=== PATIENT | male | born 1940 | race Caucasian/White ===

== ENCOUNTER 2017-03-01 04:12 | Inpatient (IN) ==
[2017-03-01] MEDS ORDERED: BENADRYL IV ONE (04:16)
[2017-03-01 04:39] LABS: MANUAL DIFF NEEDED? NO
[2017-03-01 04:40] LABS: BASO% 0.3 % (0.0-0.8); EOS# 0.19 X1000 (0.0-0.7); EOS% 2.1 % (0.0-10.0); HEMATOCRIT 42.6 % (42.0-52.0); HEMOGLOBIN 14.3 g/dL (14.0-18.0); IMM GRAN# 0.06 X1000 (0.0-0.04); IMM GRAN% 0.7 % (0.0-0.5); LYMPH# 2.14 X1000 (1.2-3.4); LYMPH% 24.2 % (20.5-51.1); MCH 31.7 PG (27-31); MCHC 33.6 g/dL (33-37); MCV 94.5 FL (81-99); MONO% 10.2 % (1.7-9.3); MPV 9.4 FL (7.4-10.4); NEUT% 62.5 % (42.2-75.2); PLT 310 X1000 (130-400); RBC 4.51 XMIL (4.7-6.1)
[2017-03-01 04:57] LABS: AGAP 15; ALBUMIN 3.9 g/dL (3.5-5.0); ALKALINE PHOSPHATASE 88 U/L (32-122); BUN 21 mg/dL (8-22); CALCIUM 10.2 mg/dL (8.8-10.2); CHLORIDE 93 mmol/L (98-107); COSMO 285; GOT 9 U/L (10-34); GPT < 5 U/L (10-44); POTASSIUM 4.7 mmol/L (3.5-5.1); SODIUM 135 mmol/L (136-145); TCO2 27 mmol/L (25-35); TOTAL BILIRUBIN 0.23 mg/dL (0.20-1.00); TOTAL PROTEIN 8.2 g/dL (6.3-8.3)
[2017-03-01] MEDS ORDERED: EPINEPHRINE IM ONE (06:15)
[2017-03-01] MEDS ORDERED: SOLU-MEDROL IV ONE (06:15)
[2017-03-01] MEDS ORDERED: SODIUM CHLORIDE 0.9% INJ ONE (06:20)
[2017-03-01] MEDS ORDERED: PEPCID IV ONE (06:20)
--- NOTE | 2017-03-01 06:26 | PROVIDER DOCUMENTATION ---
HPI-General Adult - General Chief Complaint: Tongue Swelling Stated Complaint: ANGIO EDEMA Time Seen by Provider: 03/01/17 06:12 Source: patient Allergies/Adverse Reactions: Patient Allergies Allergy/AdvReac Type Severity Reaction Status Date / Time ciprofloxacin [From Cipro] Allergy RASH Verified 03/01/17 06:48 ciprofloxacin HCl * Allergy RASH Verified 03/01/17 06:48 [From Cipro] codeine Allergy SWELLING Verified 03/01/17 06:48 Home Medications: Home Medication List Medication Instructions Recorded Confirmed Last Taken Type Aspirin 325 mg PO HS 07/17/14 12/01/16 11/30/16 History Insulin Glargine [Lantus] 55 unit SUBQ QHS 07/17/14 12/01/16 11/30/16 History Metformin HCl 1,000 mg PO HS 07/17/14 12/01/16 11/30/16 History [place]-3S/Dha/Epa/Fish Oil/D3 [Fish 1 cap PO HS 07/17/14 12/01/16 11/30/16 History Oil + D3 Softgel] Tamsulosin [Flomax] 0.4 mg PO QHS 07/17/14 12/01/16 11/30/16 History Ciprofloxacin HCl [Cipro] 500 mg PO BID #20 tablet 12/01/16 Unknown Rx Nitrofurantoin Monohyd/M-Cryst 100 mg PO BID #20 capsule 12/01/16 Unknown Rx [Macrobid 100 mg Capsule] - History of Present Illness -Gen Adult Nature of Presenting Problems: awoke this am with tongue, L lip swelling. no trouble breathing, but has trouble swallowing. some nausea, no fever. He tells me has never happened before , although EMS report said he has had before Pain Radiation: reports: no radiation Quality of Pain: reports: none Onset/Duration: reports: this morning Context/Activities at Onset: reports: sleep Modifying Factors: improves with: nothing Similar Symptoms Previously?: No Recently seen or treated by another doctor?: No Review of Systems - Adult - REVIEW OF SYSTEMS - ADULT Constitutional: reports: no symptoms reported Eyes: reports: no symptoms reported Ears, Nose, Mouth & Throat: reports: see HPI Cardiovascular: reports: no symptoms reported Respiratory: reports: no symptoms reported Gastrointestinal: reports: no symptoms reported Genitourinary: reports: no symptoms reported Musculoskeletal: reports: no symptoms reported Integumentary: reports: no symptoms reported Neurological: reports: no symptoms reported Psychiatric: reports: no symptoms reported Endocrine: reports: no symptoms reported Hematologic/Lymphatic: reports: no symptoms reported Allergic/Immunologic: reports: no symptoms reported Past History - Adult - PAST MEDICAL HISTORY-ADULT Review of Records: reports: Medications Reviewed Major Childhood Illnesses: reports: denies history Cardiovascular: reports: HTN, hyperlipidemia Respiratory: reports: COPD Gastrointestinal: reports: denies history Obstetrical/Gynecological: reports: denies history Genitourinary: reports: denies history Musculoskeletal: reports: denies history Neurological: reports: denies history Endocrine/Immune: reports: denies history Other Conditions: reports: denies history - SOCIAL HISTORY Smoking: denies Physical Exam-General - PHYSICAL EXAM-ADULT Initial Vital Signs Reviewed: Yes - CONSTITUTIONAL General Appearance: appears well, alert, mild distress - EYES Eyes: PERRL/EOMI, pink conjunctivae - HEAD, EARS, NOSE, MOUTH & THROAT HENMT: normocephalic/atraumatic, moist mucous membranes, angioedema (tounge swollen, some swelling to L side of lips) - NECK Neck: full range of motion, supple - RESPIRATORY Respiratory: chest non-tender, lungs clear, normal breath sounds (no wheeze, no stridor) - CARDIOVASCULAR Cardiovascular: normal peripheral pulses, regular rate, rhythm, no gallop, no murmur - GASTROINTESTINAL (ABDOMEN) Abdominal Exam: non tender, soft - MUSCULOSKELETAL Back Exam: normal inspection, no CVA tenderness, no vertebral tenderness Extremity: normal range of motion, non-tender, normal gait, normal inspection - SKIN Integumentary: normal color, normal turgor, warm/dry Progress - PLAN OF CARE/RESULTS Progress/Plan/Lab Results: Vital Signs - 8 hr 03/01/17 04:18 Temperature 97.6 F Pulse Rate 98 H Respiratory Rate 15 Blood Pressure 134/65 O2 Sat by Pulse Oximetry 100 Laboratory Results - last 24 hr 03/01/17 03/01/17 03/01/17 04:05 04:05 04:05 WBC 8.86 RBC 4.51 L Hgb 14.3 Hct 42.6 MCV 94.5 MCH 31.7 H MCHC 33.6 RDW Std Deviation 14.4 Plt Count 310 MPV 9.4 Immature Gran % (Auto) 0.7 H Neut % (Auto) 62.5 Lymph % (Auto) 24.2 [place] % (Auto) 10.2 H Eos % (Auto) 2.1 Baso % (Auto) 0.3 Immature Gran # (Auto) 0.06 H Neut # (Auto) 5.54 Lymph # (Auto) 2.14 [place] # (Auto) 0.90 H Eos # (Auto) 0.19 Baso # (Auto) 0.03 Sodium 135 L Potassium 4.7 Chloride 93 L Carbon Dioxide 27 Anion Gap 15 BUN 21 Creatinine 1.0 Estimated GFR/1.73 m2 > 60 BUN/Creatinine Ratio 21 Glucose 305 H Calculated Osmolality 285 Calcium 10.2 Total Bilirubin 0.23 AST 9 L ALT < 5 L Alkaline Phosphatase 88 Total Protein 8.2 Albumin 3.9 Globulin 4.3 Albumin/Globulin Ratio 0.9 Blood Type A POSITIVE Antibody Screen NEGATIVE Orders Category Date Time Status CBC WITH ELECTRONIC DIFF [HEME] Stat Lab 03/01/17 04:05 Completed CMP [COMPREHENSIVE METABOLIC PANEL] [CHEM] Stat Lab 03/01/17 04:05 Completed FFP [FRESH FROZEN PLASMA] [BBK] Stat Lab 03/01/17 04:05 Results TYPE & SCREEN [BBK] Stat Lab 03/01/17 04:05 Results Diphenhydramine [Benadryl] Med 03/01/17 04:16 Discontinued 50 mg IV NOW ONE Epinephrine Med 03/01/17 06:15 Discontinued 0.2 mg IM NOW ONE Famotidine [Pepcid] Med 03/01/17 06:20 Once 40 mg IV NOW ONE Methylprednisolone Sod Succ [Solu-Medrol] Med 03/01/17 06:15 Discontinued 125 mg IV NOW ONE Sodium Chloride 0.9% Med 03/01/17 06:20 Once 5 - 10 ml INJ NOW ONE Result Diagrams: 03/01/17 04:05 03/01/17 04:05 Departure - Departure Date of Disposition Decision: 03/01/17 Time of Disposition Decision: 08:00 DIAGNOSIS: Angioedema Qualifiers: Encounter type: initial encounter Qualified Code(s): T78.3XXA - Angioneurotic edema, initial encounter Disposition: ADMITTED INPATIENT 09 Certified Medical Emergency: Emergent Condition: Good - Critical Care Note This patient required my direct & personal management of CC.: No
--- NOTE | 2017-03-01 09:42 | Diag Imaging Result Doc PS360 ---
EXAM: CHEST-PORTABLE HISTORY: dyspnea TECHNIQUE: PA and lateral chest COMMENT: There are sternotomy wires and anterior mediastinal surgical clips. Compared to 05/02/2011, there has been no appreciable change. IMPRESSION: No acute disease. Electronically signed by Riccardo Connelly 03/01/2017 9:40 AM
--- NOTE | 2017-03-01 09:44 | Diag Imaging Result Doc PS360 ---
EXAM: NECK AP AND/OR LAT SOFT TISSUE HISTORY: angioedema TECHNIQUE: AP and lateral portable soft tissue neck COMMENT: There is no apparent prevertebral soft tissue swelling. The epiglottis does not appear to be enlarged. The possibility of narrowing of the subglottic trachea cannot be excluded. IMPRESSION: Questionable narrowing of the subglottic trachea. Electronically signed by Riccardo Connelly 03/01/2017 9:42 AM
[2017-03-01] MEDS: PEPCID IV SCH ×2 (11:13→22:48)
[2017-03-01] MEDS: BENADRYL IV SCH ×2 (11:13→22:48)
[2017-03-01] MEDS: NS 1,000 ML IV SCH ×2 (11:14→22:49)
[2017-03-01] MEDS: LOVENOX SUBQ SCH (11:14)
[2017-03-01 11:18] LABS: HEMOGLOBIN A1C 8.3 % (4.8-6.0)
[2017-03-01] MEDS: HUMALOG SUBQ SCH ×3 (11:23→20:10)
--- NOTE | 2017-03-01 12:58 | HISTORY AND PHYSICAL ---
EARLY INTERVENTION SPECIALIST: Dr. Kan Gongora. CHIEF COMPLAINT: Tongue swelling. HISTORY OF PRESENT ILLNESS: Mr. Pride is a 76-year-old male with a history of coronary artery disease status post CABG and stenting, who presents with acute onset of upper airway edema. The patient was in his normal state of health last night when he went to bed. He woke up this morning at around 1 o'clock to go to the bathroom and noticed that his tongue felt "funny." He went to the bathroom and had some water, and when he laid down he felt that his tongue was swelling. It continued to swell and he came to the ER for evaluation. Patient denied any time any shortness of breath or wheezing. He has no chest pain, cough, fever or chills. In the ER, he had basic labs done which did not show anything acute. He was given Benadryl, Pepcid and steroids. In the ER he has maintained his oxygen saturation in the high 90s throughout admission. On exam, he is not in respiratory distress, but we are going to put him in the ICU for today for close observation. PAST MEDICAL HISTORY: 1. CAD. 2. Hypertension. 3. Hyperlipidemia. 4. Prostate cancer. SURGICAL HISTORY: Coronary bypass grafting and stenting. SOCIAL HISTORY: Patient is . He quit smoking multiple years ago. He drinks 2 glasses of wine at night. Denies illicit drug use. He lives alone. FAMILY HISTORY: Noncontributory. REVIEW OF SYSTEMS: Fourteen-point review of systems obtained and found to be negative with the exception of the HPI. ALLERGIES: Allergies to ciprofloxacin and codeine. MEDICATIONS: Currently being compiled. PHYSICAL EXAMINATION: VITAL SIGNS: Blood pressure is 137/81, heart rate 93, respiratory rate 21, O2 saturation 98% on room air, temperature is 97.6 degrees. GENERAL: This is a disheveled and chronically ill appearing, 76-year-old male, lying in hospital bed in no acute distress. NEUROLOGIC: He is awake and alert. He follows commands without focal deficits. HEENT: Head is atraumatic, normocephalic. His pupils are equal, round, reactive to light. His oral mucosa is moist. He has significant tongue swelling. NECK: Shows no JVD. No carotid bruits. CHEST: Clear to auscultation bilaterally. CV: Regular rate and rhythm. S1, S2 is noted. No murmurs. GI: Soft, nondistended, nontender. Bowel sounds positive. EXTREMITIES: No edema. Pulses are palpable, but diminished. DIAGNOSTIC DATA: WBC 8.86, hemoglobin 14.3, hematocrit 42.6, platelet count 310. Sodium 135, potassium 4.7, chloride 93, CO2 27, anion gap 15, BUN 21, creatinine 1, glucose 305. AST 9, ALT less than 5, protein 8.2. ASSESSMENT/PLAN: 1. RADHA-induced angioedema: The patient will be put in the ICU for close observation. We will continue with famotidine, Benadryl and Solu-Medrol. We will withhold RADHA or ARB. We are also going to check a chest x-ray and a soft tissue neck x-ray. 2. Diabetes mellitus: We are going to check hemoglobin A1c, add pattern sugars and sliding scale insulin. Hold his oral medications for now. 3. Coronary artery disease: Patient denies any chest pain. Will continue his home medications once he is able to swallow his medications. 4. Hypertension. We will treat with intravenous medications for now. We will stop his RADHA and switch antihypertensives on discharge. 5. Deep vein thrombosis prophylaxis with Lovenox. Further recommendations to follow. Dictated by ZONIA Patiño for Desean Stanford MD cc: ZONIA Patiño MD
[2017-03-01] MEDS: SOLU-MEDROL IV SCH (20:11)
[2017-03-01] MEDS: SODIUM CHLORIDE 0.9% INJ SCH (22:48)
[2017-03-02 05:48] LABS: HEMATOCRIT 41.5 % (42.0-52.0); HEMOGLOBIN 13.6 g/dL (14.0-18.0); MCH 32.2 PG (27-31); MCHC 32.8 g/dL (33-37); MCV 98.1 FL (81-99); MPV 9.4 FL (7.4-10.4); RBC 4.23 XMIL (4.7-6.1)
[2017-03-02 06:02] LABS: AGAP 19; BUN 29 mg/dL (8-22); CALCIUM 9.2 mg/dL (8.8-10.2); CHLORIDE 101 mmol/L (98-107); COSMO 293; SODIUM 141 mmol/L (136-145); TCO2 21 mmol/L (25-35)
[2017-03-02] MEDS: HUMALOG SUBQ SCH ×5 (06:07→21:12)
[2017-03-02] MEDS: SOLU-MEDROL IV SCH (08:05)
[2017-03-02] MEDS: BENADRYL IV SCH ×2 (10:07→21:07)
[2017-03-02] MEDS: SODIUM CHLORIDE 0.9% INJ SCH (10:09)
[2017-03-02] MEDS: PEPCID IV SCH ×2 (10:09→21:07)
[2017-03-02] MEDS: LOVENOX SUBQ SCH (10:09)
[2017-03-02] MEDS: NS 1,000 ML IV SCH (10:27)
--- NOTE | 2017-03-02 11:17 | PROGRESS NOTE ---
DATE: 03/02/2017 SUBJECTIVE: This patient states that he is feeling much better. He is not having problem breathing or swallowing. I will put this patient on a diet and I will continue to monitor this patient on the medical floor. OBJECTIVE: Vital Signs: Temperature 97.8 degrees, pulse 68, respiratory rate 14, blood pressure 134/78, oxygen saturation 100% on room air. HEENT: Head normocephalic. No trauma. PERRLA. Mouth: His tongue is a little bit edematous. Palate looks fine as well as soft tissue. No problem swallowing. Neck: Supple. No JVD. No masses. Central trachea. Chest: Clear to auscultation. No wheezing. No rales. Abdomen: Soft, nontender, nondistended. No hepatosplenomegaly. Extremities: No edema. No clubbing. No cyanosis. Neurological examination: The patient is alert and oriented x3. No focal neurological deficits. LABORATORY: WBC 10.8, hemoglobin 13.6, hematocrit 41.5, platelets 311. Sodium 141, potassium 5, chloride 101, bicarbonate 21, BUN 29, creatinine 0.8, glucose 210, calcium 9.2. ASSESSMENT AND PLAN: 1. RADHA inhibitor-induced angioedema. I already talked to this patient and I told him that he cannot take any kind of RADHA inhibitor again or ARB. The angioedema looks much better today. He is breathing fine. I will start this patient on a diet, and I will monitor this patient for one more day. Hopefully tomorrow we will discharge him. 2. Type 2 diabetes. This patient received multiple rounds of steroids and the blood sugar has been high. I stopped the steroids today, and I will continue with sliding scale insulin and pattern of blood sugar. 3. History of coronary artery disease. This patient denies any chest pain or shortness of breath. We will monitor. 4. Hypertension, stable. Continue with the same management. 5. Deep vein thrombosis prophylaxis with Lovenox. cc: Desean Stanford MD
[2017-03-03] MEDS: HUMALOG SUBQ SCH ×2 (06:23→11:57)
[2017-03-03 06:36] LABS: HEMATOCRIT 39.6 % (42.0-52.0); MCH 32.1 PG (27-31); MCHC 32.8 g/dL (33-37); MCV 97.8 FL (81-99); MPV 9.4 FL (7.4-10.4); RBC 4.05 XMIL (4.7-6.1)
[2017-03-03 07:07] LABS: AGAP 12; BUN 31 mg/dL (8-22); CALCIUM 9.3 mg/dL (8.8-10.2); CHLORIDE 102 mmol/L (98-107); COSMO 295; POTASSIUM 4.2 mmol/L (3.5-5.1); SODIUM 142 mmol/L (136-145); TCO2 28 mmol/L (25-35)
[2017-03-03 09:03] VITALS: BP 139/52
[2017-03-03] MEDS: SODIUM CHLORIDE 0.9% INJ SCH (09:55)
[2017-03-03] MEDS: BENADRYL IV SCH (09:55)
[2017-03-03] MEDS: PEPCID IV SCH (09:55)
[2017-03-03] MEDS: LOVENOX SUBQ SCH (09:55)
--- NOTE | 2017-03-04 12:31 | DISCHARGE SUMMARY ---
ADMISSION DATE: 03/01/2017 DISCHARGE DATE: 03/03/2017 CONSULTATIONS: None. PERTINENT PROCEDURES: 1. Chest x-ray showed no acute disease. 2. Soft tissue neck x-ray showed questionable narrowing of the subglottic trachea. DISCHARGE DIAGNOSES: 1. RADHA inhibitor induced angioedema. The patient's RADHA inhibitor has been discontinued. Improved. 2. Type 2 diabetes. Continue home medicines. 3. Coronary artery disease history. Stable. 4. Hypertension stable. Continue same management. HOSPITAL COURSE: Briefly, Mr. Pride is a 76-year-old male with a history of coronary artery disease status post CABG and stenting presented with acute onset of upper airway edema. The patient was in his normal state of health the night prior to his admission. He went to bed. He woke up around 1 in the morning, went to the bathroom and noticed that his tongue felt funny. He had some water and when he laid down he felt like his tongue was swelling. It continued to swell. He came to the ED for evaluation. He denies any shortness of breath or wheezing. No chest pain or cough, fever, chills. His laboratory data and diagnostics done in the ED did not show anything acute. He was given Benadryl, Pepcid and steroids. In the ED he maintained his oxygen saturation in the high 90s throughout admission. On exam he did not have any respiratory distress. He was monitored in the ICU for close observation overnight. His RADHA inhibitor was discontinued. He was initiated on a diet which he tolerated well. The patient has been educated that he can no longer take an RADHA or an ARB. He is appropriate for discharge home today. VITAL SIGNS: Temperature is 98 degrees, heart rate 90, respirations 18, blood pressure is 139/52, O2 is 100% on room air. DISCHARGE DIET: GI soft. DISCHARGE MEDICATIONS: 1. Aspirin 81 mg p.o. at bedtime. 2. Lipitor 20 mg p.o. at bedtime. 3. Welchol 625 mg p.o. b.i.d. 4. Farxiga 10 mg p.o. daily. 5. Neurontin 100 mg p.o. at bedtime. 6. Metformin 1000 mg p.o. b.i.d. 7. Fish oil plus D 3 soft gel 1 cap p.o. at bedtime. 8. Flomax 0.4 mg p.o. at bedtime. FOLLOWUP: Patient is being discharged home. He does use a cane at home at times. He states that a brother or sister will stay with him at the time of his discharge. He will follow up with the nurse practitioner that he sees at [facility] in [place] in 1 week. Again, he has been educated not to take his RADHA or any ARB, that he now has an allergy. The patient can return to the ED for any worsening of symptoms. Dictated by ZONIA Fermin for Desean Stanford MD cc: Desean Stanford MD
== END 2017-03-03 12:08 | disposition home or self-care (01) ==
LOC: ED 04:12 → ICU 08:30 → 3N 03-02 10:36
PROVIDERS: ATTEND Internal Medicine

== ENCOUNTER 2019-07-10 01:26 | Inpatient (IN) ==
--- NOTE | 2019-07-02 09:43 | EKG Report ---
Test Performed on : 07/02/2019 09:29:39 AM Test Reason : PAT Blood Pressure : / mmHG Vent. Rate : 084 BPM Atrial Rate : 084 BPM P-R Int : 182 ms QRS Dur : 094 ms QT Int : 370 ms P-R-T Axes : 084 101 023 degrees QTc Int : 437 ms Normal sinus rhythm. Rightward axis T wave abnormality, consider inferior ischemia Abnormal ECG When compared with ECG of 28-APR-2011 05:44, premature ventricular complexes. are no longer present Nonspecific T wave abnormality has replaced inverted T waves in Lateral leads Unconfirmed Result
[2019-07-02 12:00] LABS: URINE SOURCE CLEAN CATCH
[2019-07-02 12:07] LABS: BASO# 0.02 X1000 (0.0-0.2); BASO% 0.3 % (0.0-0.8); EOS# 0.13 X1000 (0.0-0.7); EOS% 1.9 % (0.0-10.0); HEMATOCRIT 45.5 % (42.0-52.0); HEMOGLOBIN 14.6 g/dL (14.0-18.0); LYMPH# 2.92 X1000 (1.2-3.4); MCH 31.7 PG (27-31); MCHC 32.1 g/dL (33-37); MCV 98.7 FL (81-99); MONO# 0.83 X1000 (0.11-0.59); MONO% 11.9 % (1.7-9.3); MPV 10.3 FL (7.4-10.4); NEUT# 3.06 X1000 (1.4-6.5); NEUT% 43.9 % (42.2-75.2); PLT 283 X1000 (130-400); RBC 4.61 XMIL (4.7-6.1); RDW 14.8 % (11.5-14.5); WBC 6.96 X1000 (4.8-10.8)
[2019-07-02 12:12] LABS: BILIRUBIN URINE NEGATIVE (NEGATIVE); BLOOD URINE NEGATIVE (NEGATIVE); COLOR YELLOW; GLUCOSE URINE 100 mg/dL (NEGATIVE); KETONE URINE TRACE mg/dL (NEGATIVE); LEUKOCYTES URINE NEGATIVE (NEGATIVE); NITRITE URINE NEGATIVE (NEGATIVE); PH URINE 5.5; PROTEIN URINE TRACE mg/dL (NEGATIVE); SP GRAVITY URINE 1.015; TURBIDITY URINE CLEAR (CLEAR); UROBILINOGEN URINE NORMAL (NORMAL)
[2019-07-02 12:13] LABS: UR EPITHELIAL CELLS <10 /HPF (<10); URINE BACTERIA NEGATIVE /HPF; URINE RBC <10 /HPF (<10); URINE WBC <10 /HPF (<10)
[2019-07-02 12:14] LABS: INR 0.96; PROTIME 12.8 Seconds (11.0-16.0)
[2019-07-02 12:15] LABS: HEMOGLOBIN A1C 6.9 % (4.8-6.0); PTT 29.1 Seconds (22.3-41.8)
[2019-07-02 12:35] LABS: AGAP 14; BUN 20 mg/dL (8-22); CALCIUM 10.1 mg/dL (8.8-10.2); CHLORIDE 97 mmol/L (98-107); COSMO 284; ESTIMATED GFR > 60; GLUCOSE 143 mg/dL (70-104); POTASSIUM 4.5 mmol/L (3.5-5.1); SODIUM 140 mmol/L (136-145); TCO2 29 mmol/L (25-35)
[2019-07-10] MEDS ORDERED: LR 1,000 ML ONE (08:50)
[2019-07-10] MEDS ORDERED: COLACE ONE (08:50)
[2019-07-10] MEDS ORDERED: CELEBREX ONE (08:50)
[2019-07-10] MEDS ORDERED: PEPCID ONE (08:50)
[2019-07-10] MEDS ORDERED: KEFZOL 1 GM/D5W 1 GM/50 ML IVPB ONE (08:50)
[2019-07-10] MEDS ORDERED: REGLAN ONE (08:50)
[2019-07-10] MEDS ORDERED: LYRICA ONE (08:50)
[2019-07-10] MEDS ORDERED: FENTANYL ONE (09:06)
[2019-07-10] MEDS ORDERED: DIPRIVAN 1% ONE (09:07)
[2019-07-10] MEDS ORDERED: LOPRESSOR ONE (09:09)
[2019-07-10] MEDS ORDERED: EXPAREL 1.3% ONE (09:37)
[2019-07-10] MEDS ORDERED: MARCAINE 0.25% PF ONE (09:37)
[2019-07-10] MEDS ORDERED: SODIUM CHLORIDE 0.9% ONE (09:37)
[2019-07-10] MEDS ORDERED: CYKLOKAPRON 1,000 MG/NS 1,000 MG/100 ML IVPB ONE (09:37)
[2019-07-10] MEDS ORDERED: DURAMORPH ONE (09:37)
[2019-07-10] MEDS ORDERED: TORADOL ONE (09:37)
[2019-07-10] MEDS ORDERED: ALBUMIN 25% ONE (09:59)
[2019-07-10] MEDS ORDERED: VERSED ONE (10:12)
[2019-07-10] MEDS ORDERED: APRESOLINE ONE (11:35)
[2019-07-10] MEDS ORDERED: NEO-SYNEPHRINE ONE (11:35)
[2019-07-10 12:30] LABS: URINE SOURCE CATH
[2019-07-10 12:34] LABS: BILIRUBIN URINE NEGATIVE (NEGATIVE); BLOOD URINE TRACE (NEGATIVE); COLOR YELLOW; GLUCOSE URINE 150 mg/dL (NEGATIVE); KETONE URINE NEGATIVE (NEGATIVE); LEUKOCYTES URINE NEGATIVE (NEGATIVE); NITRITE URINE NEGATIVE (NEGATIVE); PH URINE 5.5; PROTEIN URINE TRACE mg/dL (NEGATIVE); SP GRAVITY URINE 1.016; TURBIDITY URINE CLEAR (CLEAR); UR EPITHELIAL CELLS >10 /HPF (<10); URINE BACTERIA NEGATIVE /HPF; URINE RBC <10 /HPF (<10); URINE WBC <10 /HPF (<10); UROBILINOGEN URINE NORMAL (NORMAL)
[2019-07-10] MEDS ORDERED: NS 1,000 ML ONE (13:00)
[2019-07-10] MEDS ORDERED: OXY IR PO PRN ×2 (13:15)
[2019-07-10] MEDS ORDERED: MORPHINE IV PRN ×3 (13:15)
[2019-07-10] MEDS ORDERED: NS 1,000 ML IV SCH (13:15)
[2019-07-10] MEDS ORDERED: ZOFRAN ODT PO PRN (13:15)
[2019-07-10] MEDS ORDERED: ZOFRAN IV PRN (13:15)
[2019-07-10] MEDS ORDERED: FLU VACCINE IM ONE (16:26)
[2019-07-10] MEDS ORDERED: VOLTAREN 1% GEL TOP PRN (16:29)
[2019-07-10] MEDS ORDERED: LANTUS INSULIN SUBQ PRN (16:29)
[2019-07-10] MEDS ORDERED: CYKLOKAPRON 1,000 MG in NS 100 ML IV ONE (16:30)
[2019-07-10] MEDS: TYLENOL PO SCH ×2 (16:51→21:47)
[2019-07-10] MEDS: ULTRAM PO SCH ×2 (16:51→21:47)
[2019-07-10] MEDS: KEFZOL 1 GM/D5W 1 GM/50 ML IVPB IV SCH (18:27)
--- NOTE | 2019-07-10 19:25 | OPERATIVE NOTE ---
PROCEDURE DATE: 07/10/2019 PREOPERATIVE DIAGNOSIS: Degenerative joint disease, left hip. POSTOPERATIVE DIAGNOSIS: Degenerative joint disease, left hip. PROCEDURE PERFORMED: Left anterior hip replacement. SURGEON: Tiffany Hess MD. SUPERVISOR PLATE PASTING: ZONIA Jj. Mr. Hitchcock was necessary for proper retraction and manipulation during the case. ANESTHESIA: Spinal. COMPLICATION: None. PROCEDURE: A 78-year-old male presents for a left hip replacement. Risks, benefits, and no guarantees were discussed and he is willing to proceed. He was taken to the operating room and satisfactory anesthesia obtained. He was placed on the [place] table and left hip prepped and draped in usual sterile fashion. A time-out was taken to confirm operative site, procedure, and patient. The leg was prepped and draped in sterile fashion. An anterior approach to the left hip was undertaken with an incision starting 1 cm distal and lateral to the anterior superior iliac spine and carried distally over the tensor fascia sergio for 10 cm. Dissection was carried down through the skin and subcutaneous fat. The fascia of the tensor was split in line with the incision and blunt dissection along the inner membrane of the tensor undertaken down to the anterior hip capsule. Cobra retractors placed over the superior and inferior aspect of the femoral neck. The capsulotomy incision was made to expose the arthritic hip. At this point, a C-arm was used to establish an AP pelvis for determination of leg lengths. Roughly 2 cm of shortening from bone loss was noted on the left side. An osteotomy was made at the femoral neck and the femoral head removed. A small Cobra retractors placed carefully directly on the anterior acetabular bone to prevent injury to the anterior neurovascular structures. Sequential reaming of the acetabulum under fluoroscopic guidance was undertaken up to a 53 reamer. A TRA[employer] [place] DuoFix AVILA coated 54 outer diameter cup was then impacted into the acetabulum under fluoroscopic guidance in 45 degrees of abduction and 15 degrees of anteversion. This had secure press-fit fixation. An additional 25 length screw was placed in the cup for additional security. A 36 mm inner diameter 0 degree polyethylene bearing was then impacted into the cup. The cup bearing interface and cup bone interface was checked and noted to be stable. Traction was released off the leg and the hip extended and externally rotated to facilitate broaching of the proximal femur. Sequential broaching of the proximal femur with the DePuy Actis broach was undertaken up to a size 4 stem. Standard collar with a +5 or ischemia standard collar with a 1.5 neck length produced the best stability and roman catholic of near close to equal leg lengths. No anterior posterior instability was noted. The trial stem and head ball was removed. A DePuy standard collar size 4 Actis stem was then impacted in the proximal femur with secure axial and rotational stability. A 36 mm head ball with a 1.5 neck taper was then impacted onto this. The hip was reduced. The C-arm was used to make very her to produce pictures for alignment and positioning of the prosthesis. Stability was assessed by flexing the hip up and internally rotating it without posterior instability. Anterior instability was assessed by externally rotating the leg 75 degrees and extending the hip 50 degrees without any anterior instability. The wound was copiously irrigated with irrigant. A Hemovac drain was placed. The joint capsule was injected with Exparel for pain management. The fascia of the tensor was closed with a running V-Loc suture. The subcutaneous with 2-0 Vicryl and the skin with a 4-0 Monocryl and Steri-Strips. Sterile dressings completed the closure and the patient was recovered from anesthesia and transferred to the recovery room in stable condition. No intraoperative complications were noted. Instrument count and sponge count was correct at the time of closure. cc: Arben Hess MD
--- NOTE | 2019-07-10 21:40 | ORTHOPAEDICS PROGRESS NOTE ---
DATE: 07/10/2019 SUBJECTIVE: Mr. Pride is seen status post total hip replacement. OBJECTIVE: He is afebrile with stable vital signs. Bandage is clean and dry. He appears to be motor and sensory intact with good sciatic and femoral nerve function. ASSESSMENT/PLAN: We will plan on mobilizing him and consider transfer to rehab center later this week. Currently he appears to be stable. cc: Arben Hess MD
[2019-07-10] MEDS: PERIDEX MT SCH (21:46)
[2019-07-10] MEDS: FLOMAX PO SCH (21:46)
[2019-07-10] MEDS: CELEBREX PO SCH (21:46)
[2019-07-10] MEDS: LOPRESSOR PO SCH (21:46)
[2019-07-10] MEDS: CRESTOR PO SCH (21:47)
[2019-07-10] MEDS: COLACE PO SCH (21:47)
[2019-07-11] MEDS: LANTUS INSULIN SUBQ SCH ×2 (00:24→23:06)
[2019-07-11] MEDS: TYLENOL PO SCH ×4 (04:19→23:05)
[2019-07-11] MEDS: ULTRAM PO SCH ×4 (04:19→23:07)
[2019-07-11] MEDS: KEFZOL 1 GM/D5W 1 GM/50 ML IVPB IV SCH (04:19)
[2019-07-11 06:40] LABS: HEMATOCRIT 28.6 % (42.0-52.0); HEMOGLOBIN 9.4 g/dL (14.0-18.0)
[2019-07-11 07:17] LABS: AGAP 11; BUN 22 mg/dL (8-22); CALCIUM 8.5 mg/dL (8.8-10.2); CHLORIDE 102 mmol/L (98-107); COSMO 286; ESTIMATED GFR > 60; GLUCOSE 259 mg/dL (70-104); POTASSIUM 4.5 mmol/L (3.5-5.1); SODIUM 137 mmol/L (136-145); TCO2 24 mmol/L (25-35)
--- NOTE | 2019-07-11 08:25 | Diag Imaging Result Doc PS360 ---
CHEST-1 VIEW - 07/11/2019 INDICATION: rehab COMPARISON: 03/01/2017 FINDINGS: There is ar small pulmonary mass in the left lung apex. This measures 2.3 cm. There are no infiltrates. IMPRESSION: Pulmonary mass in the left upper lobe. Chest CT is recommended. Electronically signed by Duke Guzman 07/11/2019 8:23 AM
[2019-07-11] MEDS: CELEBREX PO SCH ×2 (09:35→23:05)
[2019-07-11] MEDS: ASPIRIN PO SCH (09:35)
[2019-07-11] MEDS: PERIDEX MT SCH ×2 (09:36→23:07)
[2019-07-11] MEDS: PEPCID PO SCH (09:36)
[2019-07-11] MEDS: COLACE PO SCH ×2 (09:36→23:07)
[2019-07-11] MEDS: LOPRESSOR PO SCH ×2 (09:37→23:06)
--- NOTE | 2019-07-11 11:20 | Diag Imaging Result Doc PS360 ---
CT THORAX W/CONTRAST - 07/11/2019 INDICATION: Pulmonary Mass COMPARISON: None FINDINGS: There is a lobular soft tissue density, noncalcified pulmonary mass at the posterior pleural surface of the left upper lobe. This measures about 2.2 x 1.9 cm. Although at the posterior pleural surface, this is also right behind the scapula and would be difficult to access percutaneously. No infiltrates. There are CABG changes. Heart size is top normal. No evidence of pulmonary embolism. There is extensive renal cortical scarring of the upper pole the left kidney. Otherwise upper abdominal images are unremarkable. Bones are intact. IMPRESSION: Suspicious pulmonary nodule in the posterior left upper lobe. This exam was performed using automated exposure control, adjustment of mA or kV according to patient size, and/or use of iterative reconstruction technique Electronically signed by Duke Guzman 07/11/2019 11:18 AM
[2019-07-11] MEDS: HUMALOG SUBQ SCH ×3 (11:24→23:06)
--- NOTE | 2019-07-11 14:53 | ORTHOPAEDICS PROGRESS NOTE ---
DATE: 07/11/2019 SUBJECTIVE: Mr. Pride is seen status post total hip replacement. He did have some confusion last night, as well as slightly increased blood sugars. We have asked the hospitalist to see him today for further evaluation and geriatric care. He will need inpatient rehab. We will get the medical planner working on that. Currently, he is afebrile with stable vital signs. Laboratories look relatively good. He did have a slight temperature of 100.2 degrees. We will continue to monitor that. He can be mobilized today. We will plan on discharge to rehab center when available and he is stable. cc: MD Bin Rios MD
--- NOTE | 2019-07-11 20:23 | CONSULTATION ---
DATE OF CONSULTATION: 07/11/2019 CHIEF COMPLAINT: Medical consultation. HISTORY OF PRESENTING ILLNESS: This is a 78-year-old male who presented to [facility] for a left anterior hip replacement for left hip degenerative joint disease per Orthopedics. We were asked to consult on this patient for medical management for his diabetes and to follow him throughout this hospitalization. His surgery was on 07/10/2019. He is doing well, sitting up in the bed, eating breakfast at this time. No complaints voiced. PAST MEDICAL HISTORY: Diabetes type 2, coronary artery disease, hypertension, hyperlipidemia and prostate cancer. PAST SURGICAL HISTORY: Coronary bypass grafting and stenting. FAMILY HISTORY: Reviewed and noncontributory. SOCIAL HISTORY: He is and currently lives alone. He is a former smoker but quit many years ago. He states he drinks 2 glasses of wine at night and denies any illicit drug use. ALLERGIES: Ciprofloxacin, codeine and lisinopril. HOME MEDICATIONS: We will hold his meloxicam 15 mg p.o. daily, tramadol 50 mg p.o. q.6 hours p.r.n. We will continue his vitamin B12, 1000 mcg p.o. as directed; Voltaren 1% gel topically p.r.n.; Basaglar 5 units subcutaneously p.r.n., 12 units subcutaneously at bedtime; Lopressor 25 mg p.o. b.i.d.; Crestor 40 mg p.o. at bedtime; Flomax 0.4 mg p.o. at bedtime. LABORATORY DATA: Showed a hemoglobin of 9.4, hematocrit 28.6. Sodium 137, potassium 4.5, chloride 102, CO2 is 24, BUN of 22, creatinine 1, glucose 259. Hemoglobin A1c on 07/02/2019 was 6.9. Urinalysis was negative. DIAGNOSTIC DATA: Chest x-ray today showed a pulmonary mass in the left upper lobe, and a chest CT is recommended. REVIEW OF SYSTEMS: He denied any fever, chills, blurred vision, dizziness, chest pain, coughing or shortness of breath. He denied any abdominal pain, constipation, diarrhea, burning or hurting with urination.Musculoskeletal: He has 5/5 strength to his upper extremities, 5/5 strength to his right lower extremity, and is status post his left hip replacement at this time. PHYSICAL EXAMINATION: Temperature 98.6 degrees, pulse 93, respirations 17, blood pressure 103/43, saturating 94% on room air.General: This is a 78-year-old male who is sitting up in the bed, eating breakfast. Answers questions appropriately. HEENT: Normocephalic, atraumatic. Normal ENT inspection. Oropharynx and nares are clear. Eyes: Pupils are equal, round and reactive to light and accommodation. Extraocular movements are intact. Neck: Normal inspection, normal range of motion. Lungs were clear to auscultation bilaterally with equal lung expansion and chest wall movement. Heart: Regular rate and rhythm. No murmurs, rubs or gallops. Abdomen soft, nontender, nondistended. Bowel sounds are present x4 quadrants. Musculoskeletal: Again, he has 5/5 strength to his bilateral upper extremities, 5/5 strength to his right lower extremity. Limited at this time on his left side due to his hip replacement. Neurological: The cranial nerves 2-12 appear grossly intact. ASSESSMENT: 1. Status post left hip replacement. 2. Pulmonary mass in the left upper lobe. 3. Diabetes type 2. 4. History of hypertension. 5. History of coronary artery disease. PLAN: He will continue his postoperative treatment per Orthopedics for his left hip repair, with Physical Therapy to see. We are going to do a CT of the thorax with contrast to evaluate the left upper lobe mass today. Place him on pattern blood sugars with sliding scale insulin. Continue his home medications as previously identified. Normal saline at 75 mL/h. Continue his pain medication regimen per Orthopedics. He has SCDs for DVT prophylaxis. We will continue to follow throughout the remainder of his stay. Thank you for the opportunity to see this patient throughout the remainder of his hospitalization. Dictated by ZONIA Rushing for Bin Cook MD cc: ZONIA Rushing MD I agree with most components of history, physical, assessment and plan. A separate addendum has been dictated. CORBIN
[2019-07-11] MEDS: CRESTOR PO SCH (23:05)
[2019-07-11] MEDS: FLOMAX PO SCH (23:06)
[2019-07-12] MEDS: TYLENOL PO SCH ×3 (03:22→15:09)
[2019-07-12] MEDS: ULTRAM PO SCH ×3 (03:23→15:09)
--- NOTE | 2019-07-12 05:11 | CONSULTATION ---
DATE OF CONSULTATION: 07/11/2019 ADDENDUM: I agree with most components of history and recommendations. In brief, Mr. Pride is a 78-year-old man with past medical history of coronary artery disease requiring stent and CABG in 1989, former smoking of about 30 pack year with cigarettes and pipe which he quit about in 1989, right eye blindness, left eye partial vision loss, hypertension, hyperlipidemia, and prostate cancer status post radiation who was admitted for elective left hip arthroplasty. Medicine Team has been consulted for further management. Preoperative chest x-ray performed had detected a mass in the left upper lobe following which CT scan was obtained. SUBJECTIVE: He denies chest pain, shortness of breath, cough, nausea, or vomiting. He was only complaining of pain at the left hip joint. He is feeling a little drowsy after pain medications. VITALS: Temperature 98.4 degrees, pulse 99, respirations 16, and blood pressure 104/42. He is saturating 96% on room air. PHYSICAL EXAMINATION: General: He does not appear in acute distress. HEENT: Oral cavity is moist. Lungs: Air entry bilaterally equal. No wheeze, rhonchi, crackles. Cardiovascular: S1, S2 normal. No murmur, rub or gallop. Abdomen: Soft and nontender. No lower extremity edema. He is able to walk using his walker in the hallway with physical therapy. LABORATORY: Suggestive of drop in hemoglobin from 14.6 to 9.4. His electrolytes are essentially normal except hyperglycemia. No positive microbiological data. Chest CT is suggestive of suspicious pulmonary nodule in the posterior left upper lobe of about 2.2 x 1.9 cm. ASSESSMENT AND PLAN: 1. Left anterior hip replacement due to degenerative joint disease. Today is postoperative day 1. Continue pain management and DVT prophylaxis as per orthopedic team recommendation. 2. Left upper lobe lung mass suspicious. The patient has history of lung cancer in older as well as younger brother. He himself has history of prostate cancer requiring radiation in 1989; uncle and aunt having history of cancers as well. The mass is suspicious. He is a former smoker of about 30 years of pipe and occasionally cigarette smoking which he quit in 1989. I will consult Oncology as he may need a biopsy of his lung in the future. Currently, he is only on aspirin for DVT prophylaxis for the hip replacement. 3. History of coronary artery disease status post CABG. 4. History of essential hypertension and hyperlipidemia. 5. I will continue his home rosuvastatin. 6. History of insulin-dependent diabetes mellitus. Continue current dose of glargine. DISPOSITION: Monitor patient inside the hospital as I monitor him for recovery. Plan of care discussed with him. His questions have been answered. cc: Bin Cook MD
[2019-07-12 06:57] LABS: HEMOGLOBIN 8.8 g/dL (14.0-18.0)
[2019-07-12] MEDS: HUMALOG SUBQ SCH ×3 (07:03→15:58)
[2019-07-12] MEDS: ASPIRIN PO SCH (08:54)
[2019-07-12] MEDS: PEPCID PO SCH (08:54)
[2019-07-12] MEDS: CELEBREX PO SCH ×2 (08:55→20:28)
[2019-07-12] MEDS: COLACE PO SCH ×2 (08:56→20:29)
[2019-07-12] MEDS: PERIDEX MT SCH ×3 (08:56→20:31)
[2019-07-12] MEDS: LOPRESSOR PO SCH ×2 (08:56→20:28)
--- NOTE | 2019-07-12 13:59 | HEMO/ONC CONSULTATION ---
DATE: 07/12/2019 REASON FOR CONSULTATION: Left upper lobe mass. HISTORY OF PRESENT ILLNESS: This is a 78-year-old male who presented to the [facility] for left anterior hip replacement for left hip degenerative joint disease per orthopedics. The patient underwent surgery on 07/10. Orthopedics noticed that he was having some overnight confusion and increase in blood sugars. They requested hospitalist to evaluate and consider inpatient rehab care. Upon their evaluation, a chest X-ray revealed a small pulmonary mass in the left lung apex that measured 2.3 cm. Furthermore, a chest CT showed a lobular soft tissue density, noncalcified pulmonary mass suspicious for pulmonary nodule in the left posterior left upper lobe. PAST MEDICAL HISTORY: Type 2 diabetes, coronary artery disease, hypertension, hyperlipidemia, and prostate cancer. PAST SURGICAL HISTORY: CABG, stenting, and left hip replacement. SOCIAL HISTORY: He is a former smoker. He smoked 1 pack a day for 20 years. He quit in 1988. He drinks 2 glasses of wine a night. Denies any illicit drug use. ALLERGIES: Ciprofloxacin, codeine, and lisinopril. HOME MEDICATIONS: Meloxicam, tramadol, vitamin B12, Voltaren, Basaglar, Lopressor, Crestor, Flomax. REVIEW OF SYSTEMS: Includes left hip soreness and pain. All other pertinent positives are noted in the HPI, otherwise negative. LABORATORY: Hemoglobin 8.8, hematocrit 27. RADIOLOGY: Chest x-ray and CT are discussed in HISTORY OF PRESENT ILLNESS:. VITAL SIGNS: Temperature 98 degrees, pulse rate 83, respiratory rate 17, blood pressure 136/52, O2 saturation 97% on room air. She is in 4/10 left hip pain. PHYSICAL EXAMINATION: General: This is an elderly gentleman that does not appear in any distress. HEENT: Sclerae is anicteric. Oral mucosa is normal. PERRLA. Cardiovascular: Normal S1, S2. No murmurs, rubs, or gallops. Respiratory: Lungs are clear to auscultation. Normal respiratory effort. Abdomen: Soft, non tender, nondistended. Neurological: Awake and alert. No deficits noted. ASSESSMENT AND PLAN: 1. Status post left hip replacement. The patient will continue to recover per orthopedics. After he goes to rehab to recovers from his left hip surgery, we will see him in the clinic for further management of lung mass. 2. Pulmonary mass in the left upper lobe. At this time we cannot add much as he is status post left hip replacement. We will await recovery and rehab. We will follow up with him in the clinic for further evaluation and management. Plan for PET scan and biopsy outpatient. 3. Anemia: We will add iron profile to the patient's profile today. Optimize his iron, B12 and folate as necessary. We will follow up and continue to monitor as an outpatient. 4. Deep venous thrombosis prophylaxis. He has sequential compression devices for deep venous thrombosis prophylaxis. Dictated by ZONIA De La O for Allen Griggs MD cc: MD Bin Harley MD MTDD
[2019-07-12 14:41] LABS: IRON SATURATION 8 %; TIBC 177 ug/dL; TOTAL IRON 14 ug/dL (53-167); UNBOUND IRON 163 ug/dL (112-346)
[2019-07-12 14:46] LABS: FERRITIN 490 ng/mL (30-400)
[2019-07-12] MEDS ORDERED: TORADOL IV PRN (18:00)
[2019-07-12] MEDS: HALDOL IM PRN (20:04)
[2019-07-12] MEDS: FLOMAX PO SCH (20:28)
[2019-07-12] MEDS: TYLENOL PO PRN (20:29)
[2019-07-12] MEDS: CRESTOR PO SCH (20:29)
[2019-07-12] MEDS ORDERED: HALDOL IV ONE (20:45)
--- NOTE | 2019-07-12 21:08 | ORTHOPAEDICS PROGRESS NOTE ---
DATE: 07/12/2019 SUBJECTIVE DATA: Mr. Pride is seen on postoperative day 2, of his left total hip arthroplasty. He states his pain is a 3/10 at this time. He reports he has been up walking around in the jimenez without much difficulty. The nursing staff called earlier today and reported that Mr. Pride has been somewhat confused, and they had used some restraints earlier in the day. OBJECTIVE DATA: There is good sensation to the left lower extremity. The bandage has been removed from the left hip. He will need another bandage. There is no active bleeding. There are good pedal pulses. There is good range of motion about the knee and hip. There is negative Homans sign. The patient can flex his quadriceps muscles without difficulty. There is good capillary refill in the toes. ASSESSMENT: 1. Confusion. 2. Degenerative joint disease in the left hip with left total hip arthroplasty. PLAN: We will plan on monitoring Mr. Pride while he is in the hospital still. He is to likely be discharged tomorrow to rehab. He is still somewhat confused at this time. We will keep an eye on him since he is close to the nursing desk and make sure he does not try to wander off. We will check back on him in the morning and see if he is ready for discharge. Dictated by ZONIA Jj for Arben Hess MD cc: ZONIA Jj MD Siddharth Patel, MD
--- NOTE | 2019-07-12 21:46 | PROGRESS NOTE ---
DATE: 07/12/2019 INTERVAL HISTORY: Mr. Pride was confused and got agitated during daytime and had pulled out his IV lines. He was only receiving oral tramadol most of the time. SUBJECTIVE: At the time of my evaluation, he appears to be calm. He is answering most questions appropriately. OBJECTIVE: Vitals: Temperature of 98.1 degrees, pulse 85, respiratory rate 16, blood pressure 137/66. He is saturating 99% on room air. HEENT: He does have blindness complete on the right and partial on the left. Oral cavity is moist. Respiratory: Air entry bilaterally equal with no wheeze, rhonchi or crackles. Cardiovascular: S1, S2 normal. No murmur or gallop. Abdomen Soft, nontender. Extremities: No lower extremity edema. Neurologic: He is alert and currently oriented x3. He states that he was upset with his friend and sister and that is why he was agitated, but now appears alert. LABORATORY DATA: Suggestive of drop in hemoglobin, currently in acceptable range though. Blood glucose of 194. Iron panel suggestive of ferritin of 490, a saturation of 8. MICROBIOLOGY: No data. IMAGING: No new data. ASSESSMENT AND PLAN: 1. Left anterior hip replacement due to degenerative joint disease. Today is postoperative day 2. Continue pain management with acetaminophen and deep venous thrombosis DVT prophylaxis according to orthopedic recommendations with aspirin. If his hemoglobin is stable tomorrow, my plan will be to discharge him on newer oral anticoagulation. 2. Agitation likely related to opioid-induced and hospital-acquired delirium. Continue to redirect, reorient and reassure. 3. Left upper lobe lung mass suspicious of cancer with prior smoking history and positive family history for lung cancer. Oncology has been consulted. He would need outpatient followup. 4. History of coronary artery disease status post CABG and stent in 1991. 5. History of essential hypertension, hyperlipidemia for which I will continue his home medication. I will continue current dose of glargine for his history of insulin-dependent diabetes mellitus. DISPOSITION: Once the rehab bed is available, planning discharge tomorrow. cc: Bin Cook MD
[2019-07-13] MEDS: LANTUS INSULIN SUBQ SCH (04:30)
[2019-07-13] MEDS: PRILOSEC PO SCH ×2 (04:31→06:55)
[2019-07-13] MEDS: HUMALOG SUBQ SCH ×4 (04:31→17:29)
[2019-07-13 07:10] LABS: BASO# 0.02 X1000 (0.0-0.2); BASO% 0.1 % (0.0-0.8); EOS# 0.47 X1000 (0.0-0.7); EOS% 3.1 % (0.0-10.0); HEMATOCRIT 29.5 % (42.0-52.0); HEMOGLOBIN 9.7 g/dL (14.0-18.0); IMM GRAN# 0.18 X1000 (0.0-0.04); IMM GRAN% 1.2 % (0.0-0.5); LYMPH# 1.66 X1000 (1.2-3.4); MCH 31.8 PG (27-31); MCHC 32.9 g/dL (33-37); MCV 96.7 FL (81-99); MONO# 1.23 X1000 (0.11-0.59); MONO% 8.2 % (1.7-9.3); MPV 11.2 FL (7.4-10.4); NEUT# 11.53 X1000 (1.4-6.5); NEUT% 76.4 % (42.2-75.2); PLT 245 X1000 (130-400); RBC 3.05 XMIL (4.7-6.1); RDW 13.4 % (11.5-14.5); WBC 15.09 X1000 (4.8-10.8)
[2019-07-13 07:22] LABS: AGAP 17; BUN 19 mg/dL (8-22); CALCIUM 8.7 mg/dL (8.8-10.2); CHLORIDE 96 mmol/L (98-107); COSMO 276; CREATININE 0.9 mg/dL (0.7-1.2); ESTIMATED GFR > 60; GLUCOSE 193 mg/dL (70-104); POTASSIUM 3.6 mmol/L (3.5-5.1); SODIUM 134 mmol/L (136-145); TCO2 21 mmol/L (25-35)
[2019-07-13] MEDS: HALDOL IM PRN ×2 (08:16→14:11)
[2019-07-13] MEDS: COLACE PO SCH (08:16)
[2019-07-13] MEDS: LOPRESSOR PO SCH (08:17)
[2019-07-13] MEDS: ASPIRIN PO SCH (08:17)
[2019-07-13] MEDS: PERIDEX MT SCH (08:17)
[2019-07-13] MEDS: CELEBREX PO SCH (08:17)
--- NOTE | 2019-07-13 11:20 | Diag Imaging Result Doc PS360 ---
EXAM: CT HEAD W/O CONTRAST INDICATION: encephalopathy TECHNIQUE: This exam was performed using automated exposure control, adjustment of mA or kV according to patient size, and/or use of iterative reconstruction technique. COMPARISON: 11/27/2011 FINDINGS: There is patchy low attenuation in the periventricular and subcortical white matter suggesting moderate microangiopathy. Is very similar to the previous study but perhaps marginally worse. There is no definite acute infarct given the limited sensitivity of CT versus MRI. There is no discrete intracranial mass, mass effect, or intracranial hemorrhage. The surrounding soft tissues and bony structures are essentially unremarkable. IMPRESSION: Chronic appearing white matter changes that are probably marginally worse when compared to the previous study from 2011. No definite acute pathology by CT. Electronically signed by Arben Fountain 07/13/2019 11:18 AM
[2019-07-13 11:58] LABS: URINE SOURCE CLEAN CATCH
[2019-07-13 12:00] LABS: BILIRUBIN URINE NEGATIVE (NEGATIVE); BLOOD URINE MODERATE (NEGATIVE); COLOR YELLOW; GLUCOSE URINE 1000 mg/dL (NEGATIVE); KETONE URINE 40 mg/dL (NEGATIVE); LEUKOCYTES URINE NEGATIVE (NEGATIVE); NITRITE URINE NEGATIVE (NEGATIVE); PROTEIN URINE 100 mg/dL (NEGATIVE); SP GRAVITY URINE 1.027; TURBIDITY URINE CLEAR (CLEAR); UROBILINOGEN URINE NORMAL (NORMAL)
[2019-07-13 12:01] LABS: UR EPITHELIAL CELLS <10 /HPF (<10); URINE BACTERIA NEGATIVE /HPF; URINE RBC <10 /HPF (<10)
--- NOTE | 2019-07-13 12:05 | Diag Imaging Result Doc PS360 ---
EXAM: CHEST-2 VIEWS HISTORY: Rule out postop pneumonia. TECHNIQUE: Two views COMPARISON: 07/11/2019 FINDINGS: The lungs are well expanded. The sternal wires and surgical clips. No cardiomegaly. No pleural effusions. Left apical nodule is unchanged. No pneumothoraces. No consolidation although there is atelectasis or a tiny infiltrate in the left base. Mild vascular distention. IMPRESSION: Atelectasis or tiny infiltrate in the left base. Electronically signed by Gasper Redding 07/13/2019 12:02 PM
--- NOTE | 2019-07-13 14:15 | PROGRESS NOTE ---
DATE: 07/13/2019 SUBJECTIVE: Overnight, the sitter had to be kept with him since he was very agitated and pulled out his IV lines. In the morning time, he appears very confused, though he is arousable. He can tell me his name, but he is not really oriented with the situation. OBJECTIVE: Vital Signs: Temperature 98 degrees, pulse 104, respiratory rate 18, blood pressure 140/79, and saturating 94% on room air. General: He is not in any acute distress. HEENT: Oral cavity is moist. Lungs: Air entry bilaterally equal. No wheeze, rhonchi, or crackles. Cardiovascular: S1, S2 normal. No murmur, rub, or gallop. Does not appear tachycardic. Abdomen: Soft and nontender. Extremity: No lower extremity edema. He has a left thigh lateral incision. He is able to wiggle his toes and in fact, lift both of his legs and arms above ground level. Neurologic: He is alert. He is oriented to himself. He was not able to recognize me by my name. LABORATORY DATA: He does have a leukocytosis with immature granulocytes of 1.2%, normal kidney function, slightly ranged low sodium and chloride, and acceptable blood glucose level. No positive microbiological data. IMAGING: Head CT, chest x-ray, and urinalysis have been ordered. ASSESSMENT AND PLAN: 1. Acute encephalopathy and agitation. Differential includes opioid-induced and hospital- acquired delirium. I will rule out stroke and infection by head CT, chest x-ray, and urinalysis. Continue to avoid opioid medication. We will redirect, reorient, and reassure. 2. Left anterior hip replacement due to degenerative joint disease. Today is postoperative day 3. Continue pain management with acetaminophen and DVT prophylaxis with aspirin. His hemoglobin is stable. 3. History of left upper lobe lung mass, suspicious of cancer, with prior smoking history and positive family history for lung cancer. Oncology has been consulted. He will need outpatient followup. 4. History of coronary artery disease, status post coronary artery bypass grafting and stenting in 1991. 5. Essential hypertension and hyperlipidemia. Continue home medications for these as tolerated. I will continue current dose of glargine for history of insulin-dependent diabetes mellitus. 6. Disposition pending stabilization of his medical conditions accordingly and to rehab in the near future. Plan of care discussed with the patient. I, in fact, called the patient's brother, updating him about the plan of care and answered all of his questions. cc: Bin Cook MD
--- NOTE | 2019-07-13 14:31 | ORTHOPAEDICS PROGRESS NOTE ---
DATE: 07/13/2019 Mr. Pride is seen status post hip replacement. He remains confused. He is not even alert to name, place, or circumstance. Incisions clean and dry. There is minimal swelling over the lower extremity. I do not see any active bleeding, redness, warmth or signs of infection. He does have an elevated white blood cell count today which is unusual. His temperature is relatively afebrile. He did have a mild temperature roughly 24 hours ago to 100.2, but it has returned to 98 since then. He remains confused. We will plan on monitoring him in the hospital per the hospitalist service. When he is medically stabilized, we will consider discharge to rehab center. cc: MD Bin Rios MD
[2019-07-13] MEDS ORDERED: ATIVAN IV PRN (16:00)
[2019-07-13] MEDS ORDERED: ATIVAN IM PRN (16:08)
[2019-07-13] MEDS: LIBRIUM PO SCH (16:21)
[2019-07-13] MEDS ORDERED: SEROQUEL PO SCH (21:00)
[2019-07-14] MEDS: PRILOSEC PO SCH ×3 (01:25→23:21)
[2019-07-14] MEDS: CELEBREX PO SCH (01:25)
[2019-07-14] MEDS: LIBRIUM PO SCH ×5 (01:26→23:22)
[2019-07-14] MEDS: PERIDEX MT SCH ×3 (01:26→23:21)
[2019-07-14] MEDS: LOPRESSOR PO SCH ×3 (01:26→23:21)
[2019-07-14] MEDS: LANTUS INSULIN SUBQ SCH ×2 (01:26→23:24)
[2019-07-14] MEDS: FLOMAX PO SCH ×2 (01:27→23:21)
[2019-07-14] MEDS: CRESTOR PO SCH ×2 (01:27→23:21)
[2019-07-14] MEDS: HUMALOG SUBQ SCH ×5 (01:27→23:08)
[2019-07-14] MEDS: COLACE PO SCH ×3 (01:27→23:21)
[2019-07-14 06:52] LABS: BASO# 0.01 X1000 (0.0-0.2); BASO% 0.1 % (0.0-0.8); EOS# 0.15 X1000 (0.0-0.7); EOS% 1.2 % (0.0-10.0); HEMATOCRIT 27.1 % (42.0-52.0); HEMOGLOBIN 9.1 g/dL (14.0-18.0); LYMPH# 2.04 X1000 (1.2-3.4); LYMPH% 16.5 % (20.5-51.1); MCHC 33.6 g/dL (33-37); MCV 98.2 FL (81-99); MONO# 1.42 X1000 (0.11-0.59); MONO% 11.5 % (1.7-9.3); MPV 10.1 FL (7.4-10.4); NEUT# 8.71 X1000 (1.4-6.5); NEUT% 70.7 % (42.2-75.2); PLT 326 X1000 (130-400); RBC 2.76 XMIL (4.7-6.1); WBC 12.33 X1000 (4.8-10.8)
--- NOTE | 2019-07-14 15:47 | PROGRESS NOTE ---
DATE: 07/14/2019 INTERVAL HISTORY: No acute events overnight. He was quiet the rest of the night. In the morning time, he was asleep. He has not eaten his lunch. I woke him up and he appeared confusion. He is not able to provide historical data meaningfully. Yesterday, I had discussion with his brother that he drinks almost 1 glass of wine at nighttime but he is not sure if patient had history of alcohol withdrawal. VITALS: Temperature 97.8, pulse 77, respiratory rate 20, blood pressure 148/90, saturating 100% on 2 L nasal cannula. Input and output: He has not had any bowel movement since yesterday. LABORATORY: WBC of 12,000, hemoglobin 9.1, platelet 326. No BMP today. His urinalysis had 10-12 WBCs and urine culture has not shown any growth. PHYSICAL EXAMINATION: His air entry bilaterally equal. No wheeze, rhonchi, or crackles. Cardiovascular: S1, S2 normal. No murmur, or gallop. Abdomen: Soft, nontender. Extremities: No lower extremity edema. He is able to sit up from lying down position without any trouble. He has baseline blindness. Labs as mentioned above. IMAGING: Yesterday, head CT did not have any acute changes. He did have chronic-appearing white matter changes, which were worse. ASSESSMENT AND PLAN: 1. Acute encephalopathy. Differential includes hospital-acquired delirium, alcohol withdrawal syndrome, delirium tremens on top of baseline cognitive dysfunction. No definite evidence of infection. Head CT was unremarkable. Continue to avoid opioid. Redirect, reorient, reassure. Continue him on as needed lorazepam as well as chlordiazepoxide. 2. Left anterior hip replacement due to degenerative joint disease. Continue pain management with acetaminophen and start Xarelto for DVT prophylaxis. 3. History of left upper lobe lung mass suspicious of cancer with past smoking history and positive family history of lung cancer. Oncology has been consulted. He will need outpatient followup. 4. History of coronary artery disease status post coronary artery bypass grafting and stenting in 1991 currently appears stable. 5. Essential hypertension and hyperlipidemia. Continue metoprolol and continue glargine for insulin-dependent diabetes mellitus. 6. Disposition. Continue to monitor patient inside the hospital. Plan of care discussed with team. His questions have been answered. cc: Bin Cook MD [facility]
--- NOTE | 2019-07-14 18:57 | ORTHOPAEDICS PROGRESS NOTE ---
DATE: 07/14/2019 SUBJECTIVE: Mr. Pride is seen status post hip replacement. His delirium is improved. He is oriented to person and place today. He is unable recall specifically why he came in the hospital. His incision is clean and dry. We will continue to mobilize him. It is encouraging to see that he is improving. OBJECTIVE: He is afebrile with stable vital signs. ASSESSMENT/PLAN: The hospitalist is continuing to follow his delirium and medical illness. I will consider discharge to a rehab facility once he is assuredly medically stable. cc: MD Bin Rios MD
[2019-07-14] MEDS: TYLENOL PO PRN (23:21)
[2019-07-15] MEDS: LIBRIUM PO SCH ×4 (04:16→21:32)
[2019-07-15] MEDS: XARELTO PO SCH (06:27)
[2019-07-15] MEDS: PRILOSEC PO SCH ×2 (06:27→21:32)
[2019-07-15] MEDS: HUMALOG SUBQ SCH ×4 (07:43→21:32)
[2019-07-15] MEDS: COLACE PO SCH ×2 (09:15→21:32)
[2019-07-15] MEDS: LOPRESSOR PO SCH ×2 (09:15→21:32)
[2019-07-15] MEDS: PERIDEX MT SCH ×2 (09:15→21:32)
[2019-07-15] MEDS: TYLENOL PO PRN ×2 (12:44→21:32)
--- NOTE | 2019-07-15 12:54 | ORTHOPAEDICS PROGRESS NOTE ---
DATE: 07/15/2019 Mr. Pride is seen today. He is much more alert. He is oriented x2, really x3, to date, place, and name. Incision is clean and dry. Orthopedically stable. His dementia appears to be resolving. Will plan on discharge tomorrow to inpatient rehab facility. I will follow him tomorrow for discharge planning. cc: MD Bin Rios MD
--- NOTE | 2019-07-15 14:42 | EKG Report ---
Test Performed on : 07/14/2019 06:37:32 AM Test Reason : Follow up QTc Blood Pressure : / mmHG Vent. Rate : 119 BPM Atrial Rate : 119 BPM P-R Int : 160 ms QRS Dur : 104 ms QT Int : 326 ms P-R-T Axes : 070 090 023 degrees QTc Int : 458 ms Sinus tachycardia. Rightward axis Nonspecific ST and T wave abnormality Abnormal ECG When compared with ECG of 02-JUL-2019 09:29, No significant change was found Confirmed by Orlin CARRERO, P.J.M ([id number]) on 07/16/2019 6:30:16 PM
--- NOTE | 2019-07-15 14:54 | PROGRESS NOTE ---
DATE: 07/15/2019 INTERVAL HISTORY: No acute events overnight. He has been rather calm. He has not required any haloperidol or Ativan. He has been taking his Librium. SUBJECTIVE: I was able to wake him up. He denies any complaints. He is alert and oriented. OBJECTIVE: Current Vital Signs: Temperature 98.5 degrees, pulse 85, respiratory rate 20, blood pressure 127/43, saturating 97% on room air. General: Not in acute distress. HEENT: Oral cavity is moist. Lungs: Air entry bilaterally equal. No wheeze, rhonchi, crackles. Heart: S1, S2 normal. No murmur or gallop. Abdomen: Soft, nontender. Extremities: No lower extremity edema. Left lateral thigh incision appears to be healing well, without any undue erythema or discharge. Neurologic: He has blindness affecting both eyes, with only partial vision. LABORATORY DATA: No CBC today. BMP is suggestive of slight hyperglycemia. MICROBIOLOGY: Urine culture has not shown any growth. IMAGING: No new imaging. ASSESSMENT AND PLAN: 1. Acute encephalopathy. Differential includes hospital-acquired delirium, alcohol withdrawal syndrome since he drinks 2 to 3 wine glasses a day, on top of baseline cognitive dysfunction. Head CT was unremarkable. Infectious etiology is unremarkable. Now improving. I will slowly taper Librium down. 2. 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 Continue pain management with acetaminophen and Xarelto for deep venous thrombosis prophylaxis. 3. History of left upper lobe lung mass, suspicious of cancer with smoking and positive history of lung cancer. Oncology is planning outpatient biopsy. 4. History of coronary artery disease, status post coronary artery bypass graft, stenting in 1991. Currently appears stable. 5. Essential hyperlipidemia. 6. I will continue home metoprolol and glargine for insulin-dependent diabetes mellitus. 7. Disposition. Planning discharge to rehab tomorrow. Plan of care discussed with him. His questions have been answered. cc: Bin Cook MD
[2019-07-15] MEDS: CRESTOR PO SCH (21:32)
[2019-07-15] MEDS: FLOMAX PO SCH (21:32)
[2019-07-15] MEDS: LANTUS INSULIN SUBQ SCH (21:32)
[2019-07-16] MEDS: PRILOSEC PO SCH (06:52)
[2019-07-16] MEDS: XARELTO PO SCH (06:52)
[2019-07-16] MEDS: HUMALOG SUBQ SCH ×2 (06:55→12:39)
[2019-07-16 07:07] LABS: BASO# 0.01 X1000 (0.0-0.2); BASO% 0.1 % (0.0-0.8); EOS# 0.35 X1000 (0.0-0.7); EOS% 4.4 % (0.0-10.0); HEMATOCRIT 26.2 % (42.0-52.0); HEMOGLOBIN 8.5 g/dL (14.0-18.0); IMM GRAN# 0.05 X1000 (0.0-0.04); IMM GRAN% 0.6 % (0.0-0.5); LYMPH# 1.97 X1000 (1.2-3.4); LYMPH% 24.6 % (20.5-51.1); MCH 31.6 PG (27-31); MCHC 32.4 g/dL (33-37); MCV 97.4 FL (81-99); MONO# 0.98 X1000 (0.11-0.59); MONO% 12.2 % (1.7-9.3); MPV 9.7 FL (7.4-10.4); NEUT# 4.65 X1000 (1.4-6.5); NEUT% 58.1 % (42.2-75.2); PLT 392 X1000 (130-400); RBC 2.69 XMIL (4.7-6.1); RDW 13.8 % (11.5-14.5); WBC 8.01 X1000 (4.8-10.8)
[2019-07-16 07:40] LABS: AGAP 15; BUN 21 mg/dL (8-22); CALCIUM 8.8 mg/dL (8.8-10.2); CHLORIDE 101 mmol/L (98-107); COSMO 291; ESTIMATED GFR > 60; GLUCOSE 179 mg/dL (70-104); POTASSIUM 3.1 mmol/L (3.5-5.1); SODIUM 142 mmol/L (136-145); TCO2 26 mmol/L (25-35)
[2019-07-16] MEDS: PERIDEX MT SCH (08:47)
[2019-07-16] MEDS: LOPRESSOR PO SCH (08:47)
[2019-07-16] MEDS: COLACE PO SCH (08:47)
--- NOTE | 2019-07-16 10:02 | ORTHOPAEDICS PROGRESS NOTE ---
DATE: 07/16/2019 SUBJECTIVE: Mr. Pride is seen status post total hip replacement. His confusion is somewhat better. He is gradually progressing. We will plan on transferring him to inpatient rehab today if available. If not, we will continue to hold until bed is available. cc: MD Bin Rios MD
[2019-07-16] MEDS ORDERED: KLOR-CON PO ONE (10:59)
[2019-07-16 11:22] VITALS: BP 124/59
--- NOTE | 2019-07-16 12:33 | DISCHARGE SUMMARY ---
ADMISSION DATE: 07/10/2019 DISCHARGE DATE: 07/16/2019 DISCHARGE DISPOSITION: Rehabilitation. DISCHARGE CONDITION: He is hemodynamically stable. He is alert. He is oriented. He is no longer agitated. He was able to walk in the hallway using a walker with the help of physical therapy. DISCHARGE DIAGNOSES: 1. 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 2. Acute encephalopathy in the setting of hospital-acquired delirium versus alcohol withdrawal and delirium tremens. 3. Left upper lobe lung mass, newly diagnosed, suspicious for malignancy, pending outpatient biopsy. 4. Hypokalemia. 5. Hyperglycemia. OTHER DIAGNOSES: 1. History of coronary artery disease, status post coronary artery bypass graft and stenting in 1991. 2. History of essential hypertension. 3. History of insulin-dependent diabetes mellitus. 4. Positive family history of multiple family members having lung cancer. DISCHARGE MEDICATIONS: Rosuvastatin 40 mg at nighttime, tamsulosin 0.4 mg at nighttime, metoprolol 25 mg b.i.d., vitamin B12 with 1000 mcg as directed, diclofenac 1% gel topical as needed for joint pain, insulin glargine 20 units subcutaneous at nighttime (the dose needs to be adjusted according to blood sugar levels), acetaminophen 1000 mg every 8 hours as needed for pain, tramadol 25 mg every 8 hours as needed for pain not controlled by acetaminophen (12 tablets have been prescribed), Xarelto 10 mg daily for DVT prophylaxis for left hip replacement (25 tablets have been prescribed). DISCHARGE INSTRUCTIONS: He was advised to have a followup with Dr. Hess. He was also advised to have followup with Dr. Griggs for biopsy of lung mass. VITALS: At the time of discharge, temperature 98.7 degrees, pulse 83, respiratory rate 24, blood pressure 124/59, saturating 100% on room air. PHYSICAL EXAMINATION: General: Not in acute distress. Oral cavity is moist. Lungs: Air entry bilaterally equal. No wheeze, rhonchi, or crackles. Cardiovascular: S1, S2 normal. Regular. No murmur, rub, or gallop. Abdomen: Soft, nontender. No lower extremity edema. He does not have undue tenderness on the left lateral thigh incision site. He is alert. He is answering questions appropriately. He is oriented x3, though he forgot a lot of hospital events including diagnosis of lung mass. SIGNIFICANT LABS: During hospital and discharge, on presentation, he had WBC of 15,000 which improved to 8000 at the time of discharge. Hemoglobin is 8.5, platelets 392,000. His potassium is 3.1, which is currently being repleted. BUN 21, creatinine 1, sodium of 142, blood glucose 203. MICROBIOLOGY: Urine culture did not have any growth. IMAGING: On presentation, chest x-ray had a left upper lobe lung mass. Chest CT performed had suspicious pulmonary nodule in the posterior left upper lobe of about 2.2 x 1.9 cm size. Chest x- ray on July 13 had atelectasis in the left base. Head CT on July 13 had chronic appearing white matter changes which were marginally worse than prior presentation. Femoral specimen had extensive chronic degenerative joint disease. Electrocardiogram on presentation had normal sinus rhythm with nonspecific ST-T abnormality. HOSPITAL COURSE SUMMARY: Mr. Pride is a 78-year-old, man who was admitted on 07/10/2019 for degenerative joint disease of the left hip, which he underwent, successfully on July 10, with left anterior hip replacement and hospitalist team was consulted for further management of his medical issues. Chest x-ray performed preoperatively did have left upper lobe lung mass, so he underwent CT scan which detected a lung nodule which was suspicious for malignancy. Oncology team was consulted and who had recommended outpatient biopsy so he should follow up with Dr. Griggs for that. On the second day of hospital admission, before he could be discharged to rehab, he had developed acute agitation requiring restraints. Sitter at the bedside, on multiple doses of Ativan and haloperidol. It was thought that his agitation and delirium were likely hospital-acquired delirium versus delirium tremens because of alcohol withdrawal. Apparently, he has been drinking 1 to 2 glasses of wine every day, though patient and his brother had denied previous history of alcohol withdrawal. His CT scan of head and infectious workup did not reveal anything, and with Librium, his agitation had subsided. At the time of discharge, he is no longer on Librium. He is alert and oriented x3. Answering all questions and is able to comply with care so it was decided to discharge him to rehab. TIME SPENT: More than 30 minutes of discharge time were spent in taking of this patient. All of his questions were satisfactorily answered. cc: Bin Cook MD
[2019-08-05] MEDS ORDERED: CYANOCOBALAMIN IM SCH (09:00)
== END 2019-07-16 13:25 | DRG 470 ==
LOC: SURHOLD 01:26 → 4N 10:23
PROVIDERS: ADMIT Internal Medicine; ATTEND Orthopaedic Surgery Adult Reconstructive Orthopaedic Surgery